=== PATIENT | female | born 1980 | race Caucasian/White ===

== ENCOUNTER 2018-01-30 19:13 | Outpatient (CLI) | payer BC | END 2018-01-30 19:14 | disposition critical access hospital (66) | LOC: EMS 19:13 | PROVIDERS: ATTEND Surgery | DX: R55 Syncope and collapse (principal) | CPT/HCPCS: A0425; A0427 ==

== ENCOUNTER 2018-01-30 19:22 | Emergency (ER) | payer BC ==
[2018-01-30 19:55] LABS: BASOPHILS % (AUTO) 0.5 %; EOSINOPHILS # (AUTO) 0.1 10^3/uL (0.0-0.7); EOSINOPHILS % (AUTO) 1.3 %; HGB - HEMOGLOBIN 12.7 g/dL (12.0-16.0); LYMPHOCYTES # (AUTO) 2.5 10^3/uL (1.5-3.5); LYMPHOCYTES % (AUTO) 28.8 %; MEAN CORPUSCULAR HEMOGLOBIN 30.5 pg (27.0-31.0); MEAN CORPUSCULAR HGB CONC 34.2 g/dL (32.0-36.0); MEAN PLATELET VOLUME 9.2 fL (7.9-10.8); MONOCYTES # (AUTO) 0.3 10^3/uL (0.0-1.0); NEUTROPHILS # (AUTO) 5.7 10^3/uL (1.5-6.6); NEUTROPHILS % (AUTO) 66.4 %; PLT - PLATELET COUNT 229 10^3/uL (130-450); RED BLOOD COUNT 4.18 10^6/uL (4.20-5.40); RED CELL DISTRIBUTION WIDTH 12.4 % (12.0-15.0); WHITE BLOOD COUNT 8.6 x10^3/uL (4.8-10.8)
[2018-01-30 20:07] LABS: ALBUMIN 3.8 g/dL (3.2-5.5); ALBUMIN/GLOBULIN RATIO 1.5 (1.0-2.2); ALKALINE PHOSPHATASE 74 IU/L (42-121); ALT ALANINE AMINOTRANSFERASE 18 IU/L (10-60); AST ASPARTATE AMINOTRANSFERASE 14 IU/L (10-42); BILIRUBIN,TOTAL 0.3 mg/dL (0.2-1.0); BUN - BLOOD UREA NITROGEN 16 mg/dL (6-20); CALCIUM 8.2 mg/dL (8.5-10.3); CARBON DIOXIDE - CO2 23 mmol/L (21-32); CHLORIDE 108 mmol/L (101-111); CREATININE 0.5 mg/dL (0.4-1.0); GFR - MDRD 138 (>89); GLUCOSE 97 mg/dL (70-100); LIPASE 33 U/L (22-51); SODIUM 137 mmol/L (135-145); TOTAL PROTEIN 6.3 g/dL (6.7-8.2)
[2018-01-30] MEDS ORDERED: SODIUM CHLORIDE 0.9% 1,000 ML IV ONE (20:30)
--- NOTE | 2018-01-30 21:05 | ED Physician Documentation ---
PD HPI SYNCOPE - Stated complaint Stated Complaint: SYNCOPE - Chief complaint Chief Complaint: Neuro - Additional information Additional information: 37-year-old female was brought to the emergency department for a syncopal episode which occurred today while at home. The patient symptoms started after having sex, the patient had a headache afterwards and subsequently passed out. The patient denies chest pain before or after the event. The patient denies palpitations or racing heart before or after the event. Presently, the patient has a dull generalized headache with no radiation into her neck. The patient denies fevers, chills, cough, nasal congestion. The patient does report an episode of vaginal bleeding earlier today but presently has no vaginal bleeding. Symptoms are described as severe when they occurred and presently mild. Review of Systems Constitutional: denies: Fever, Chills Eyes: denies: Discharge Ears: denies: Ear pain Nose: denies: Congestion Throat: denies: Sore throat Cardiac: denies: Chest pain / pressure, Palpitations Respiratory: denies: Cough GI: denies: Abdominal Pain, Nausea, Vomiting : reports: Vaginal bleeding Skin: denies: Rash Musculoskeletal: denies: Neck pain Neurologic: reports: Syncope, Headache Immunocompromised: denies: Chemotherapy PD PAST MEDICAL HISTORY - Past Medical History Past Medical History: No - Past Surgical History Past Surgical History: Yes General: Hiatal hernia repair - Present Medications Home Medications: Ambulatory Orders Medication Instructions Recorded Confirmed Thyroid Med 01/30/18 - Allergies Allergies/Adverse Reactions: Allergies Allergy/AdvReac Type Severity Reaction Status Date / Time No Known Drug Allergies Allergy Verified 01/30/18 19:30 - Social History Does the pt smoke?: No Smoking Status: Never smoker Does the pt drink ETOH?: No Does the pt have substance abuse?: No - Immunizations Immunizations are current?: Yes PD ED PE NORMAL - General General: Alert and oriented X 3, No acute distress - HEENT HEENT: Atraumatic, PERRL, EOMI, Ears normal - Neck Neck: Supple, no meningeal sign - Cardiac Cardiac: RRR, Strong equal pulses - Respiratory Respiratory: No respiratory distress, Clear bilaterally - Abdomen Abdomen: Soft, Non tender, Non distended - Derm Derm: Normal color - Extremities Extremities: No deformity - Neuro Neuro: Alert and oriented X 3, it trainer 2-12 intact, No motor deficit, Normal speech - Psych Psych: Normal mood Results - Vitals Vitals: Vital Signs - 24 hr 01/30/18 01/30/18 01/30/18 19:23 19:36 21:21 Temperature 36.8 C Heart Rate 74 78 Heart Rate [ 62 Sitting] Heart Rate [ 76 Standing] Heart Rate [ 69 Supine] Respiratory 16 16 Rate Blood Pressure 123/64 105/80 Blood Pressure 109/66 [Sitting] Blood Pressure 107/75 [Standing] Blood Pressure 107/62 [Supine] O2 Saturation 99 99 Oxygen O2 Source Room air - EKG (time done) 19:37 Rate: Rate (enter#) Rhythm: NSR Intervals: Normal FL, QRS normal Ischemia: Normal ST segments - Labs Labs: Laboratory Tests 01/30/18 01/30/18 01/30/18 19:48 19:48 20:20 WBC 8.6 RBC 4.18 L Hgb 12.7 Hct 37.2 MCV 89.0 MCH 30.5 MCHC 34.2 RDW 12.4 Plt Count 229 MPV 9.2 Neut # (Auto) 5.7 Lymph # (Auto) 2.5 Mckenzie # (Auto) 0.3 Eos # (Auto) 0.1 Baso # (Auto) 0.0 Absolute Nucleated RBC 0.00 Nucleated RBC % 0.0 Sodium 137 Potassium 3.4 L Chloride 108 Carbon Dioxide 23 Anion Gap 6.0 BUN 16 Creatinine 0.5 Estimated GFR (MDRD) 138 Glucose 97 Calcium 8.2 L Total Bilirubin 0.3 AST 14 ALT 18 Alkaline Phosphatase 74 Total Protein 6.3 L Albumin 3.8 Globulin 2.5 Albumin/Globulin Ratio 1.5 Lipase 33 Urine Color YELLOW Urine Clarity CLEAR Urine pH 7.0 Ur Specific [place] 1.015 Urine Protein NEGATIVE Urine Glucose (UA) NEGATIVE Urine Ketones NEGATIVE Urine Occult Blood TRACE-LYSE Urine Nitrite NEGATIVE Urine Bilirubin NEGATIVE Urine Urobilinogen 0.2 (NORMAL) Ur Leukocyte Esterase NEGATIVE Ur Microscopic Review NOT INDICATED Urine Culture Comments NOT INDICATED Urine HCG, Qual NEGATIVE Ethyl Alcohol < 5.0 - Rads (name of study) CTA Head/neck Radiology: Final report received (CTA Head: Normal CTA of the head. No significant vascular stenosis, dissection, or aneurysm. Normal neck CT angiogram. No hemodynamically significant stenoses. ) PD MEDICAL DECISION MAKING - ED course ED course: The patient had a comprehensive workup for her acute headache and syncopal episode. The patient CT angiogram of her head and neck did not reveal any acute intracranial abnormality and the patient's syncope workup is unremarkable and the patient on reevaluation appears much improved. Presently, the patient appears appropriate for discharge and further workup as an outpatient. I recommended a echocardiogram and Holter monitor as an outpatient. I discussed warning signs and recommended returning to the emergency department immediately for any worsening or any concerns. - Sepsis Event Vital Signs: Vital Signs - 24 hr 01/30/18 01/30/18 01/30/18 19:23 19:36 21:21 Temperature 36.8 C Heart Rate 74 78 Heart Rate [ 62 Sitting] Heart Rate [ 76 Standing] Heart Rate [ 69 Supine] Respiratory 16 16 Rate Blood Pressure 123/64 105/80 Blood Pressure 109/66 [Sitting] Blood Pressure 107/75 [Standing] Blood Pressure 107/62 [Supine] O2 Saturation 99 99 Oxygen O2 Source Room air Departure - Departure Disposition: 01 Home, Self Care Clinical Impression: Syncope Qualifiers: Syncope type: unspecified Qualified Code(s): R55 - Syncope and collapse Headache Qualifiers: Headache type: other headache syndrome Qualified Code(s): G44.89 - Other headache syndrome Condition: Good Instructions: Syncope Comments: Please follow-up with your primary care this week for recheck. Please ask your primary care to arrange for an outpatient echocardiogram and Holter monitor. Please return to the emergency department for any worsening or any concerns.
[2018-01-30 21:22] VITALS: BP 105/80
[2018-01-30 21:24] LABS: BILIRUBIN,URINE NEGATIVE (NEGATIVE); GLUCOSE, URINE (UA) NEGATIVE (NEGATIVE); KETONES,URINE (UA) NEGATIVE (NEGATIVE); LEUKOCYTE ESTERASE, URINE NEGATIVE (NEGATIVE); NITRITE,URINE NEGATIVE (NEGATIVE); OCCULT BLOOD,URINE TRACE-LYSE (NEGATIVE); PROTEIN,URINE NEGATIVE (NEGATIVE); UROBILINOGEN,URINE 0.2 (NORMAL) E.U./dL (NORMAL)
[2018-01-30 21:26] LABS: CLARITY,URINE CLEAR (CLEAR)
[2018-01-30 21:27] LABS: HCG UR QUAL NEGATIVE
[2018-01-30] MEDS ORDERED: IOPAMIDOL-300 100 ML VIAL ONE (21:34)
[2018-01-30] MEDS ORDERED: IOPAMIDOL-300 100 ML VIAL IVP ONE (22:27)
--- NOTE | 2018-01-30 23:17 | CT Report ---
Reason: GALVAN Procedure Date: 01/30/2018 Accession Number: [id number] / [id number] Procedure: CT - Neck Angio CPT Code: FULL RESULT: EXAM: CT ANGIOGRAM NECK EXAM DATE: 01/30/2018 10:30 PM. CLINICAL HISTORY: Headache COMPARISON: None. TECHNIQUE: Routine axial helical imaging was performed from the skull base through the aortic arch. Reconstructions: Routine multiplanar 3D MIP reconstructions. IV Contrast: ISOVUE 300 80mL. Evaluation of arterial stenosis is based on a NASCET method of measurement. In accordance with CT protocol optimization, one or more of the following dose reduction techniques were utilized for this exam: automated exposure control, adjustment of mA and/or KV based on patient size, or use of iterative reconstructive technique. FINDINGS: Detail mildly compromised by motion, vertically distal cervical internal carotid arteries bilaterally. Right Carotid: The common carotid, internal carotid, and external carotid arteries are widely patent. No dissection, significant atherosclerotic plaque, or calcification identified. Left Carotid: The common carotid, internal carotid, and external carotid arteries are widely patent. No dissection, significant atherosclerotic plaque, or calcification identified. Vertebrals: The vertebrobasilar system shows no stenoses. Intracranial Circulation: Normal. No stenoses or aneurysms of the visualized vessels. Other: The bones, soft tissues, and lung apices are within normal limits. IMPRESSION: Normal neck CT angiogram. No hemodynamically significant stenoses. RADIA
--- NOTE | 2018-01-30 23:20 | CT Report ---
Reason: GALVAN Procedure Date: 01/30/2018 Accession Number: [id number] / [id number] Procedure: CT - Head Angio CPT Code: FULL RESULT: EXAM: CT ANGIOGRAM HEAD. CT SCAN OF THE HEAD WITHOUT AND WITH CONTRAST. EXAM DATE: 01/30/2018 10:29 PM CLINICAL HISTORY: Headache COMPARISON: None. TECHNIQUE: - CT Scan Head: Using a multidetector scanner, axial images were acquired from the foramen magnum to the skull vertex prior to and following contrast administration. - CT Angiogram: Using a multidetector scanner, high-resolution axial images were acquired from the skull base through vertex following rapid infusion of intravenous contrast. Reformats: Multiplanar MIP reformats were reconstructed. Nascet criteria used for stenosis measurement. IV Contrast: ISOVUE 300 80mL. In accordance with CT protocol optimization, one or more of the following dose reduction techniques were utilized for this exam: automated exposure control, adjustment of mA and/or KV based on patient size, or use of iterative reconstructive technique. FINDINGS: NON-CONTRAST HEAD: Parenchyma: No intraparenchymal hemorrhage. No evidence of mass, midline shift, or CT findings of infarction. Vaughn-white differentiation is distinct. Extraaxial Spaces: Normal for age. No subdural or epidural collections identified. Ventricles: Normal in size and position. Sinuses and orbits: Imaged paranasal sinuses, orbits, and mastoids show no significant abnormality. Bones: No evidence of fracture or calvarial defect. Other: None. POST-CONTRAST HEAD: No abnormal enhancement. CT ANGIOGRAM HEAD: RIGHT: Internal Carotid artery: No evidence of dissection. No evidence of aneurysm along the intracranial ICA. Anterior Cerebral Artery: Patent without significant stenosis, aneurysm, or vascular malformation. Middle Cerebral Artery: Patent without significant stenosis, aneurysm, or vascular malformation. Posterior Cerebral Artery: Patent without significant stenosis, aneurysm, or vascular malformation. Posterior Communicating Artery: Patent. No aneurysm. Vertebral Artery: Patent without significant stenosis. No evidence of dissection. LEFT: Internal Carotid artery: No evidence of dissection. No evidence of aneurysm along the intracranial ICA. Anterior Cerebral Artery: Patent without significant stenosis, aneurysm, or vascular malformation. Middle Cerebral Artery: Patent without significant stenosis, aneurysm, or vascular malformation. Posterior Cerebral Artery: Patent without significant stenosis, aneurysm, or vascular malformation. Posterior Communicating Artery: Patent. No aneurysm. Vertebral Artery: Patent without significant stenosis. No evidence of dissection. CENTRAL: Anterior Communicating Artery: Patent. No aneurysm. Basilar Artery: Patent without significant stenosis. No aneurysm. DURAL VENOUS SINUSES AND MAJOR CENTRAL VEINS: Patent. IMPRESSION: CT Head: No acute intracranial abnormality. Specifically, no evidence of acute infarct, hemorrhage, or mass lesion. No abnormal enhancement. CTA Head: Normal CTA of the head. No significant vascular stenosis, dissection, or aneurysm. RADIA
== END 2018-01-30 23:38 | disposition home or self-care (01) ==
LOC: ED 19:22
DX: R55 Syncope and collapse (principal); G44.89 Other headache syndrome
CPT/HCPCS: 36415; 70496; 70498; 80053; 80320; 81003; 81025; 83690; 85025; 93005; 96361; 96374; 99283; Q9967; 81001; 87086